=== PATIENT | female | born 1960 | race Caucasian/White ===

== ENCOUNTER 2017-07-05 09:02 | Outpatient (CLI) | payer OTHER ==
[~2017-07-05 09:02] MED LIST: AVAPRO300 MG; DICLOFENAC POTA50 MG PO; MOTRIN800 MG PO; NORFLEX100MG PO
[2017-07-13] MEDS ORDERED: NORFLEX100MG PO (10:06)
[2017-07-13] MEDS ORDERED: VOLTAREN-XR100 MG PO (10:06)
== END 2017-07-05 15:49 | disposition home or self-care (01) ==
LOC: TOM 09:02
DX: M12.9 Arthropathy, unspecified (principal); M19.90 Unspecified osteoarthritis, unspecified site; G43.909 Migraine, unspecified, not intractable, without status migrainosus

== ENCOUNTER 2018-02-28 09:51 | Outpatient (CLI) | payer OTHER ==
[~2018-02-28 09:51] MED LIST changes: +VOLTAREN-XR100 MG PO
== END 2018-02-28 10:00 | disposition home or self-care (01) ==
LOC: MAMO-SONO 09:51
DX: N60.11 Diffuse cystic mastopathy of right breast (principal); N60.12 Diffuse cystic mastopathy of left breast; Z12.31 Encounter for screening mammogram for malignant neoplasm of breast

== ENCOUNTER 2018-04-18 15:00 | Outpatient (CLI) | payer OTHER | END 2018-04-18 15:12 | disposition home or self-care (01) | LOC: RAD 15:00 | DX: M54.5 Low back pain (principal) ==

== ENCOUNTER 2018-08-09 10:37 | Outpatient (CLI) | payer OTHER | END 2018-08-09 10:46 | disposition home or self-care (01) | LOC: RAD 10:37 | DX: M25.562 Pain in left knee (principal) ==

== ENCOUNTER 2020-01-29 12:35 | Outpatient (CLI) | payer OTHER | END 2020-01-29 12:38 | disposition home or self-care (01) | LOC: MAMO-SONO 12:35 | PROVIDERS: ATTEND Specialist | DX: N64.59 Other signs and symptoms in breast (principal); N60.11 Diffuse cystic mastopathy of right breast; N60.12 Diffuse cystic mastopathy of left breast ==

== ENCOUNTER 2021-01-27 08:31 | Outpatient (CLI) | payer OTHER | END 2021-01-27 08:42 | disposition home or self-care (01) | LOC: SONOGRAMA 08:31 | PROVIDERS: ATTEND Internal Medicine Cardiovascular Disease | DX: Q44.6 Cystic disease of liver (principal); R10.84 Generalized abdominal pain ==

== ENCOUNTER → 2021-06-28 | Outpatient (CLI) | payer OTHER | END | disposition home or self-care (01) | LOC: MAMO-SONO 11:58 | PROVIDERS: ATTEND Obstetrics & Gynecology | DX: N60.12 Diffuse cystic mastopathy of left breast (principal); N60.11 Diffuse cystic mastopathy of right breast ==

== ENCOUNTER 2022-04-27 07:55 | Outpatient (CLI) | payer OTHER | END 2022-04-27 08:36 | disposition home or self-care (01) | LOC: SONOGRAMA 07:55 | PROVIDERS: ATTEND Obstetrics & Gynecology | DX: D18.03 Hemangioma of intra-abdominal structures (principal) ==

== ENCOUNTER 2022-08-16 13:33 | Outpatient (CLI) | payer OTHER | END 2022-08-16 13:42 | disposition home or self-care (01) | LOC: MAMO-SONO 13:33 | PROVIDERS: ATTEND Obstetrics & Gynecology | DX: N60.11 Diffuse cystic mastopathy of right breast (principal); N60.12 Diffuse cystic mastopathy of left breast; Z12.31 Encounter for screening mammogram for malignant neoplasm of breast ==

== ENCOUNTER 2024-01-24 13:25 | Outpatient (CLI) | payer OTHER | END 2024-01-24 13:42 | disposition home or self-care (01) | LOC: MAMO-SONO 13:25 | PROVIDERS: ATTEND Obstetrics & Gynecology | DX: N60.11 Diffuse cystic mastopathy of right breast (principal); N60.12 Diffuse cystic mastopathy of left breast ==

== ENCOUNTER 2024-06-04 11:50 | Outpatient (CLI) | payer OTHER | END 2024-06-04 12:00 | disposition home or self-care (01) | LOC: RAD 11:50 | PROVIDERS: ATTEND Physical Medicine & Rehabilitation | DX: M54.2 Cervicalgia (principal) ==

== ENCOUNTER → 2024-07-18 11:03 | Outpatient (CLI) | payer OTHER | END | disposition home or self-care (01) | LOC: NUCLEAR 06-20 13:00 | PROVIDERS: ATTEND Physical Medicine & Rehabilitation | DX: M81.0 Age-related osteoporosis without current pathological fracture (principal) ==

== ENCOUNTER 2024-07-18 13:26 | Outpatient (CLI) | payer OTHER | END 2024-07-18 13:31 | disposition home or self-care (01) | LOC: SONOGRAMA 13:26 | PROVIDERS: ATTEND Obstetrics & Gynecology | DX: R31.29 Other microscopic hematuria (principal) ==